=== PATIENT | female | born 1980 | race Caucasian/White ===

== ENCOUNTER 2025-04-28 07:24 | Emergency (ER) | payer OTHER ==
[2025-04-28] MEDS ORDERED: Fluorescein Opthalmic Strip ONE (07:32)
[2025-04-28] MEDS ORDERED: Tetracaine 0.5% PF 4 ML BOT ONE (15:40)
== END 2025-04-28 07:50 | disposition home or self-care (01) ==
LOC: BURERS 07:24
DX: S05.02XA Injury of conjunctiva and corneal abrasion without foreign body, left eye, initial encounter (principal); F17.290 Nicotine dependence, other tobacco product, uncomplicated; W54.8XXA Other contact with dog, initial encounter
CPT/HCPCS: 99283